=== PATIENT | female | born 1995 | race Caucasian/White ===

== ENCOUNTER 2019-06-21 13:51 | Emergency (ER) | payer OTHER ==
[2019-06-21 13:57] VITALS: BP 138/82; PULSE 74; TEMP 98.7
--- NOTE | 2019-06-21 14:01 | PDOC ---
Rapid Medical Evaluation Time Seen by Provider: 06/21/19 13:57 Medical Evaluation: 06/21/19 13:57 COVID NOTE HPI: The patient is a 24 y/o F with no past medical history, who presents COVID testing. She is asymptomatic at this time. The patient has (+) exposure to coronavirus from a friend who was tested positive. (-) Recent travel. They are concerned they have coronavirus and present for testing. (-) fever, chills, cough, sore throat, difficulty breathing, shortness of breath, chest pain, lightheadedness, dizziness nausea, vomiting, and diarrhea. Other 12 point ROS reviewed and negative. EXAM: General: NAD, well-appearing, AAO x3. ENT: No rhinorrhea or nasal congestion. Neck: FROM, no midline tenderness Lungs: Clear to auscultation bilateral without wheezes rales or rhonchi. Normal excursion. Patient is able to speak in full sentences. Heart: Regular rate and rhythm, S1-S2 present, no murmurs rubs or gallops. Abdomen: Non-distended MSK/Extremities: no decreased ROM, no obvious deformities. No cyanosis Neuro: Normal gait, cranial nerves II through XII grossly intact. SKIN: No rashes, bruising. Color normal appering A/P: Cough Patient has no past medical history, denies recent travel. (+) known COVID exposure. Patient does not meet criteria for testing at this time. We will refer the patient to outpatient testing clinics in the [facility] for further monitoring of their symptoms. Strict return precautions given. Instructed that if they should have shortness of breath, chest pain or difficulty breathing to return to the emergency room for further management and treatment. Recommend self-isolation for 14 days given symptoms. Discharge home I discussed the physical exam findings, ancillary test results and final diagnoses with the patient. I answered all of the patient's questions. The patient was satisfied with the care received and felt comfortable with the discharge plan and treatment plan. The Patient agrees to follow up with the primary care physician/specialist within 24-72 hours. Return precautions were given. Discharge Disposition - Diagnosis Exposure to 2019 novel coronavirus - Discharge Dispostion Disposition: HOME Condition at time of disposition: Stable Decision to Admit order: No - Referrals Referrals: Rain Viveros [Primary Care Provider] - - Patient Instructions Printed Discharge Instructions: [facility]-Coronavirus Instructions Additional Instructions: You were seen for your cough and possible Betts virus (COVID-19) Please call the [place] testing center to make an appointment for a test [phone] Take Tylenol 650mg every 4 hours as needed for fever or pain You may take robitussin or other over the counter cough syrup. Follow the dosing instructions on the bottle. Warm tea, honey, and salt water gargles may help your symptoms. Please pretend like you tested positive for COVID and self-quarantine for two weeks and follow up with your primary care doctor and the department of health. Return to the ER for shortness of breath, difficulty breathing, chest pain, or if you have any changes in your symptoms. Usted fue visto por mcnally tos y posible virus Betts (COVID-19) Llame al centro de pr[facility]bas [facility] para hacer mercedez colleen para un examen [phone] Iyanbito Tylenol 650mg cada 4 horas segn sea necesario para la fiebre o el dolor Usted puede elizabeth robitussina u otro sobre el jarabe para la tos de venta leydi. Siga las instrucciones de dosificacin del frasco. Las grgaras de t caliente, miel y agua salada pueden ayudar a los sntomas. Por favor finja que has dado positivo para COVID y auto-cuarentena cole dos semanas y haz un seguimiento con tu mdico de atencin primaria y el departamento de sonali. Regrese a urgencias para dificultad para respirar, dificultad para respirar, dolor en el pecho o si tiene algn cambio en los sntomas. Print Language: PASHTO - Post Discharge Activity Work/School Note: Back to Work
== END 2019-06-21 14:30 | disposition home or self-care (01) ==
LOC: JER 13:51
DX: Z20.828 Contact with and (suspected) exposure to other viral communicable diseases (principal); R05 Cough
CPT/HCPCS: 99282-25

== ENCOUNTER 2021-02-21 12:10 | Emergency (ER) | payer OTHER ==
[2021-02-21 12:19] VITALS: BP 107/72; PULSE 78; TEMP 98.1; BMI 27.4
[2021-02-21] MEDS ORDERED: SODIUM CHLORIDE 0.9% 500 ML INFUS.BAG IV ONE ×2 (13:45→15:40)
[2021-02-21] MEDS ORDERED: ONDANSETRON 4 MG/2 ML VIAL IVPUSH ONE (13:45)
[2021-02-21] MEDS ORDERED: ONDANSETRON 4 MG/2 ML VIAL ONE (14:12)
[2021-02-21 16:34] LABS: PH,URINE 5.5 (5.0-8.0); URINE APPEARANCE CLOUDY; URINE BILIRUBIN 1+ (NEGATIVE); URINE COLOR DK YELLOW; URINE GLUCOSE (UA) NEGATIVE (NEGATIVE); URINE KETONE 2+ (NEGATIVE); URINE LEUK ESTERASE NEGATIVE (NEGATIVE); URINE NITRITE NEGATIVE (NEGATIVE); URINE PROTEIN TRACE (NEGATIVE)
[2021-02-21 16:41] LABS: BASO % 0.2 % (0-2.0); EOS % 0.7 % (0-4.5); HEMATOCRIT 37.7 % (32.4-45.2); HEMOGLOBIN 13.5 GM/dL (10.7-15.3); LYMPH % 22.9 % (8-40); MCH 29.8 pg (25.7-33.7); MCHC 35.8 g/dl (32.0-36.0); MEAN CELL VOLUME 83.3 fl (80-96); MEAN PLT VOLUME 8.9 fl (7.5-11.1); MONO % 5.5 % (3.8-10.2); NEUT % 70.7 % (42.8-82.8); PLATELET COUNT 206 10^3/uL (134-434); RBC 4.52 M/mm3 (3.60-5.2); RDW 14.3 % (11.6-15.6); WHITE BLOOD COUNT 9.7 K/mm3 (4.0-10.0)
[2021-02-21 17:02] LABS: ALBUMIN 3.3 g/dl (3.4-5.0); BILIRUBIN,TOTAL 0.6 mg/dL (0.2-1); BLOOD UREA NITROGEN 6.2 mg/dL (7-18); CALCIUM 8.8 mg/dL (8.5-10.1); CREATININE 0.5 mg/dL (0.55-1.3); TOT PROT 7.2 g/dl (6.4-8.2)
== END 2021-02-21 18:10 | disposition home or self-care (01) ==
LOC: JER 12:10
PROC: 3E033NZ Introduction of Analgesics, Hypnotics, Sedatives into Peripheral Vein, Percutaneous Approach (ICD-10-PCS; principal; 2021-02-21)
PROC: 3E0337Z Introduction of Electrolytic and Water Balance Substance into Peripheral Vein, Percutaneous Approach (ICD-10-PCS; 2021-02-21)
DX: O21.0 Mild hyperemesis gravidarum (principal)
CPT/HCPCS: 36415; 80053; 81003; 85025; 87086; 96361; 96374; 99284-25

== ENCOUNTER 2021-09-08 09:50 | Inpatient (IN) | payer OTHER ==
[2021-09-08] MEDS: ELECTROLYTE-148 SOLN 1,000 ML IV SCH (10:00)
[2021-09-08 11:15] VITALS: BMI 32.0
[2021-09-08] MEDS ORDERED: PHENYLEPHRINE HCL 10 MG/1 ML SINGLE DOSE VIAL ONE (12:52)
[2021-09-08] MEDS ORDERED: KETOROLAC TROMETHAMINE 30 MG/1 ML VIAL ONE (12:52)
[2021-09-08] MEDS ORDERED: morphine SULFATE/PF 1 MG/2 ML (2cc Syringe - QUVA) ONE (12:52)
[2021-09-08] MEDS ORDERED: ONDANSETRON 4 MG/2 ML VIAL ONE ×2 (12:52→16:46)
[2021-09-08] MEDS ORDERED: OXYTOCIN 10 UNITS/ML VIAL ONE (12:52)
[2021-09-08] MEDS ORDERED: ceFAZolin SODIUM 1 GM VIAL ONE (13:07)
[2021-09-08] MEDS ORDERED: ACETAMINOPHEN 1000 MG/100 ML BAG IVPB PRN (13:15)
[2021-09-08] MEDS ORDERED: IBUPROFEN 800 MG/8 ML IJ IVPB PRN (13:15)
[2021-09-08] MEDS ORDERED: ONDANSETRON 4 MG/2 ML VIAL IVPB PRN (13:15)
[2021-09-08] MEDS ORDERED: oxyCODONE HCL 5 MG TABLET PO PRN (13:15)
[2021-09-08] MEDS ORDERED: SENNOSIDES/DOCUSATE COMBO (SENNA PLUS) TABLET (UD) PO PRN (13:15)
[2021-09-08 14:28] LABS: CORD BASE EXCESS -0.6 mmol/L (0-2); CORD HCO3 25.8 mmHg (20-29); CORD PCO2 48.9 mmHg (30-78); CORD pH 7.34 (7.14-7.44)
[2021-09-08 14:33] LABS: CORD HCO3 23.8 mmHg (20-29); CORD PCO2 54.8 mmHg (30-78); CORD pH 7.256 (7.14-7.44)
[2021-09-08] MEDS ORDERED: CITRIC ACID/SODIUM CITRATE 30 ML UNIT-DOSE CUP PO ONE (14:38)
[2021-09-08] MEDS ORDERED: METHYLERGONOVINE MALEATE 0.2 MG/1 ML AMP IM PRN (16:41)
[2021-09-09] MEDS: OXYTOCIN 20 UNITS in 0.9% NS 20 UNIT/1,000 ML INFUS.BAG IV SCH ×2 (00:43→18:54)
[2021-09-09 08:43] LABS: BASO % 0.3 % (0-2.0); EOS % 0.9 % (0-4.5); HEMATOCRIT 26.5 % (32.4-45.2); HEMOGLOBIN 8.5 GM/dL (10.7-15.3); LYMPH % 14.1 % (8-40); MCH 20.2 pg (25.7-33.7); MCHC 32.1 g/dl (32.0-36.0); MEAN CELL VOLUME 62.9 fl (80-96); MEAN PLT VOLUME 8.2 fl (7.5-11.1); MONO % 8.5 % (3.8-10.2); NEUT % 76.2 % (42.8-82.8); PLATELET COUNT 190 10^3/uL (134-434); RBC 4.21 M/mm3 (3.60-5.2); RDW 19.1 % (11.6-15.6); WHITE BLOOD COUNT 9.1 K/mm3 (4.0-10.0)
[2021-09-09] MEDS: SIMETHICONE 80 MG TAB.CHEW (FP) PO PRN ×2 (12:08→22:18)
[2021-09-09] MEDS ORDERED: ACETAMINOPHEN 325 MG TABLET (FP) PO PRN (13:15)
[2021-09-09] MEDS ORDERED: BISACODYL 10 MG SUPP.RECT RC PRN (13:15)
[2021-09-09] MEDS: IBUPROFEN 600 MG TABLET (FP) PO PRN ×2 (13:23→22:18)
[2021-09-09] MEDS: ELECTROLYTE-148 SOLN 1,000 ML IV SCH (18:54)
[2021-09-10 09:33] VITALS: BP 102/70; PULSE 72; TEMP 98.2
== END 2021-09-10 13:30 | disposition home or self-care (01) | DRG 540 ==
LOC: JLDR 09:50 → J3W 17:20
PROVIDERS: ADMIT Internal Medicine; ATTEND Internal Medicine
PROC: 10D00Z1 Extraction of Products of Conception, Low, Open Approach (ICD-10-PCS; principal; 2021-09-08)
DX: O34.211 Maternal care for low transverse scar from previous cesarean delivery (principal); Z37.0 Single live birth; O99.214 Obesity complicating childbirth; E66.9 Obesity, unspecified; Z3A.39 39 weeks gestation of pregnancy
CPT/HCPCS: 36415; 36600; 82803; 85025; 88307-TC